=== PATIENT | male | born 1960 | race Two or more races ===

== ENCOUNTER 2016-09-27 17:52 | Emergency (ER) | payer MEDICAID, OTHER ==
[~2016-09-27] VITALS: Ht 160 cm; Wt 57.3 kg
[~2016-09-27 17:52] MED LIST: AMIT100T PO; HYDR25TA6 PO
[2016-09-27 18:01] VITALS: BP 130/86
[2016-09-27] MEDS ORDERED: DIAZEPAM 5 MG TABLET ONE (20:54)
== END 2016-09-27 19:37 | disposition home or self-care (01) ==
LOC: ED 19:31
DX: J20.9 Acute bronchitis, unspecified (principal); I10 Essential (primary) hypertension; G47.00 Insomnia, unspecified; J45.909 Unspecified asthma, uncomplicated
CPT/HCPCS: 71020

== ENCOUNTER 2016-10-31 07:56 | Emergency (ER) | payer MEDICAID ==
[~2016-10-31] VITALS: Ht 160 cm; Wt 57.0 kg
[2016-10-31 08:01] VITALS: BP 141/96
== END 2016-10-31 10:10 | disposition home or self-care (01) ==
LOC: ED 09:30
DX: J06.9 Acute upper respiratory infection, unspecified (principal); I10 Essential (primary) hypertension; J45.909 Unspecified asthma, uncomplicated
CPT/HCPCS: 71020; 99284